=== PATIENT | female | born 1965 | race Caucasian/White ===

== ENCOUNTER 2018-03-04 17:00 | Emergency (ER) | payer SELFPAY ==
[~2018-03-04] VITALS: Ht 165.1 cm; Wt 68.2 kg
[2018-03-04 17:06] VITALS: BP 130/68; Ht 165.1 cm; Wt 68.2 kg
== END 2018-03-04 19:03 | disposition left against medical advice (07) ==
LOC: D.ER 17:00
DX: L02.411 Cutaneous abscess of right axilla (principal)